=== PATIENT | female | born 1990 | race Hispanic/Latino ===

== ENCOUNTER 2018-09-23 19:34 | Emergency (ER) | payer SELFPAY ==
[2018-09-23 19:40] VITALS: TEMP 98; O2SAT 100
--- NOTE | 2018-09-23 20:21 | ED PDOC ---
HPI: Psych/Substance Abuse Time Seen by Provider: 09/23/18 19:59 Chief Complaint (Nursing): Alcohol Ingestion Chief Complaint (Provider): alcohol ingestion History Per: Patient History/Exam Limitations: no limitations Onset/Duration Of Symptoms: Mins (just prior to arrival) Current Symptoms Are (Timing): Still Present Severity: Moderate Additional Complaint(s): 28 year old female with no pertinent past medical history is brought into the ED by EMS for alcohol intoxication. As per EMS, earlier today, a bystander saw the patient trying to get into her car and noticed that she was intoxicated. Bystander called the police, police found her in the front seat of the car. EMS was called to take the patient to the ED. Patient states "I'm a bad person, I didn't mean to be a bad person." Patient denies having any physical complaints. Patient admits to drinking alcohol today at a bar. PMD: None provided Past Medical History Reviewed: Historical Data, Nursing Documentation, Vital Signs Vital Signs: Last Vital Signs Temp 98.0 F 09/23/18 19:38 Pulse 102 H 09/23/18 19:38 Resp 16 09/23/18 19:38 BP 128/73 09/23/18 19:38 Pulse Ox 100 09/23/18 19:38 GERALDINE Report Viewed: Yes Primary Care Provider: FAMILY PROVIDER,NO - Medical History PMH: No Chronic Diseases - Family History Family History: States: No Known Family Hx - Allergies Allergies/Adverse Reactions: Allergies Allergy/AdvReac Type Severity Reaction Status Date / Time No Known Allergies Allergy Verified 09/23/18 19:40 Review of Systems ROS Statement: Except As Marked, All Systems Reviewed And Found Negative Physical Exam - Reviewed Nursing Documentation Reviewed: Yes Vital Signs Reviewed: Yes - Physical Exam Appears: Positive for: Well, Non-toxic, No Acute Distress Head Exam: Positive for: ATRAUMATIC, NORMOCEPHALIC Skin: Positive for: Normal Color, Warm, Dry Eye Exam: Positive for: Other (crying) Cardiovascular/Chest: Positive for: Regular Rate, Rhythm Respiratory: Positive for: Normal Breath Sounds Neurological/Psych: Positive for: Awake, Alert, Oriented (3x), Mood/Affect (cooperative, non-combative, not aggressive) - ECG O2 Sat by Pulse Oximetry: 100 (RA) Pulse Ox Interpretation: Normal Medical Decision Making Medical Decision Makin:59 Initial impression: 28 year old female with alcohol intoxication Initial plan: [employer] police called ED to inform that the patient's boyfriend is on his way to pick the patient up. Patient stable for discharge home with the accompaniment of a sober republican. Counseling was provided and all questions were answered regarding diagnosis. There is agreement to discharge plan. Return if symptoms persist or worsen. 23:00 Patient's boyfriend in ED, he states he makes himself responsible for patient and will get her home. Patient is willing to leave with boyfriend. Patient ambulating with a steady gait. Scribe Attestation: Documented by Kathie Swartz, acting as a scribe for Sophia Whitney [employer]GE. Provider Scribe Attestation: All medical record entries made by the Scribe were at my direction and personally dictated by me. I have reviewed the chart and agree that the record accurately reflects my personal performance of the history, physical exam, medical decision making, and the department course for this patient. I have also personally directed, reviewed, and agree with the discharge instructions and disposition. Disposition - Clinical Impression Clinical Impression: Alcohol intoxication - Patient ED Disposition Is Patient to be Admitted: No Counseled Patient/Family Regarding: Diagnosis - Disposition Disposition: Routine/Home Disposition Time: 23:00 Condition: STABLE Instructions: Alcohol Use - When Is Drinking a Problem? Print Language: OCCITAN - POA Present On Arrival: None
[2018-09-23 22:59] VITALS: BP 134/87; PULSE 100; RESP 18
== END 2018-09-23 23:00 | disposition home or self-care (01) ==
LOC: H.ER 19:34
DX: F10.129 Alcohol abuse with intoxication, unspecified (principal)